=== PATIENT | male | born 1945 | race Caucasian/White ===

== ENCOUNTER 2017-06-16 15:37 | Outpatient (CLI) | payer MEDICARE, OTHER ==
--- NOTE | 2017-06-17 13:54 | Ultrasound Report ---
BILATERAL LOWER EXTREMITY ARTERIAL DUPLEX: 06/16/2017 CLINICAL INDICATION: Numbness, paresthesias. TECHNIQUE: Real-time sonographic vascular imaging was performed by the beauty therapist through the lower extremities utilizing both color-flow and Doppler spectral analysis. Multiple sales representative gas service static images were saved for review. RIGHT SIDE SITE PSV WAVEFORM STEN COMMUNITY BOARD MEMBER 89 triphasic -- PSFA 82 biphasic -- MSFA 70 triphasic -- DSFA 59 triphasic -- PFA 55 biphasic -- POP 45 triphasic -- ANIKA 48 biphasic -- ROLL FORMING SUPERVISOR 82 biphasic -- PER 52 biphasic -- DPA 13 biphasic -- LEFT SIDE SITE PSV WAVEFORM STEN COMMUNITY BOARD MEMBER 80 triphasic -- PSFA 97 triphasic -- MSFA 69 biphasic -- DSFA 60 triphasic -- PFA 58 triphasic -- POP 66 triphasic -- ANIKA 55 biphasic -- ROLL FORMING SUPERVISOR 74 biphasic -- PER 39 biphasic -- DPA 19 biphasic -- FINDINGS RIGHT LEG: Waveforms are predominantly triphasic. There is no evidence of a focal velocity increase to suggest a hemodynamically significant stenosis. LEFT LEG: Waveforms are predominantly triphasic. There is no evidence of a focal velocity increase to suggest a hemodynamically significant stenosis. IMPRESSION: NO EVIDENCE OF HEMODYNAMICALLY SIGNIFICANT ARTERIAL STENOSIS IN EITHER LEG. TD: 06/17/2017 09:39 JOHN
== END 2017-06-16 15:38 | disposition home or self-care (01) ==
LOC: DI 15:37
PROVIDERS: ATTEND Internal Medicine
DX: R20.2 Paresthesia of skin (principal)
CPT/HCPCS: 93925

== ENCOUNTER 2017-08-20 06:30 | Emergency (ER) | payer MEDICARE ==
[2017-08-20 06:40] VITALS: BP 224/118
--- NOTE | 2017-08-20 06:44 | ED Physician Documentation ---
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, but similar episodes x few days) Timing - onset during: Rest Timing - duration: Minutes Timing - details: Abrupt onset, Still present, Intermittant Pain level now: 8 Quality: Pain Location: Substernal, Left chest, Right chest Radiation: Left upper extremity, Right upper extremity Improved by: Nothing Worsened by: Other (no exacerbating factors) Associated symptoms: No: Shortness of air, Diaphoresis, Nausea, Vomiting, Feeling faint / dizzy, General Weakness, Palpitations, Cough Similar symptoms before: Has not had sx before (episodic x few days, but has not had symptoms previously) Recently seen: Not recently seen - Additional information Additional information: drove self to ED Review of Systems Constitutional: reports: Reviewed and negative Eyes: reports: Reviewed and negative Ears: reports: Reviewed and negative Nose: reports: Reviewed and negative Throat: reports: Reviewed and negative Cardiac: reports: Chest pain / pressure. denies: Palpitations, Pedal edema, Calf pain Respiratory: reports: Reviewed and negative GI: reports: Reviewed and negative : reports: Reviewed and negative Skin: reports: Reviewed and negative Musculoskeletal: reports: Reviewed and negative Neurologic: reports: Reviewed and negative PD PAST MEDICAL HISTORY - Past Medical History Past Medical History: Yes : Benign prostate hypertrophy - Past Surgical History Past Surgical History: No - Present Medications Home Medications: Ambulatory Orders Medication Instructions Recorded Confirmed Tamsulosin HCl [Flomax] 0.4 mg PO 08/20/17 - Allergies Allergies/Adverse Reactions: Allergies Allergy/AdvReac Type Severity Reaction Status Date / Time No Known Drug Allergies Allergy Verified 08/20/17 06:40 - Living Situation Living Situation: reports: With family Living Arrangement: reports: At home - Social History Does the pt smoke?: Yes PD ED PE NORMAL - Vitals Vital signs reviewed: Yes - General General: Alert and oriented X 3, No acute distress, Well developed/nourished - HEENT HEENT: Moist mucous membranes - Neck Neck: Supple, no meningeal sign - Cardiac Cardiac: RRR, No murmur - Respiratory Respiratory: No respiratory distress, Clear bilaterally - Abdomen Abdomen: Soft, Non tender - Derm Derm: Normal color, Warm and dry - Extremities Extremities: No edema - Neuro Neuro: Alert and oriented X 3 Results - Vitals Vitals: Vital Signs - 24 hr 08/20/17 06:34 Temperature 36.1 C L Heart Rate 65 Respiratory 12 Rate Blood Pressure 224/118 H O2 Saturation 100 Oxygen O2 Source Room air - EKG (time done) No standard instances Rate: Rate (enter#) (55) Rhythm: NSR [place]: Normal Intervals: Normal [place] QRS: Normal Ischemia: ST elevation c/w ischemia (II, III, aVF) - Labs Labs: Laboratory Tests 08/20/17 08/20/17 08/20/17 06:40 06:40 06:40 WBC 9.1 RBC 4.62 L Hgb 14.8 Hct 44.0 MCV 95.2 H MCH 32.0 H MCHC 33.6 RDW 14.3 Plt Count 342 MPV 7.8 Neut # (Auto) 5.0 Lymph # (Auto) 3.0 Antelope # (Auto) 0.9 Eos # (Auto) 0.1 Baso # (Auto) 0.1 Absolute Nucleated RBC 0.01 Nucleated RBC % 0.1 PT 12.3 INR 1.1 APTT 25.2 Sodium 135 Potassium 3.9 Chloride 101 Carbon Dioxide 22 Anion Gap 12.0 BUN 26 H Creatinine 1.1 Estimated GFR (MDRD) 66 L Glucose 121 H Calcium 9.4 Total Creatine Kinase 251 CK-MB (CK-2) Troponin I 08/20/17 06:40 WBC RBC Hgb Hct MCV MCH MCHC RDW Plt Count MPV Neut # (Auto) Lymph # (Auto) Antelope # (Auto) Eos # (Auto) Baso # (Auto) Absolute Nucleated RBC Nucleated RBC % PT INR APTT Sodium Potassium Chloride Carbon Dioxide Anion Gap BUN Creatinine Estimated GFR (MDRD) Glucose Calcium Total Creatine Kinase CK-MB (CK-2) 30.5 H Troponin I 1.33 H* PD MEDICAL DECISION MAKING - ED course Complexity details: reviewed results, re-evaluated patient, considered differential, d/w patient, d/w family ED course: presents to ED by private vehicle c/o chest pain. denies cardiac history. EKG reveals STEMI (inferior leads). Given heparin bolus and heparin drip initiated, given aspirin, SLNTG, PO metoprolol, plavix. blood drawn and sent. patient was already en route to [facility] via ambulance before blood tests resulted. D/W Dr. Fatima (ED physician at [facility]), accepts transfer. - Sepsis Event Vital Signs: Vital Signs - 24 hr 08/20/17 06:34 Temperature 36.1 C L Heart Rate 65 Respiratory 12 Rate Blood Pressure 224/118 H O2 Saturation 100 Oxygen O2 Source Room air Departure - Departure Disposition: 02 Transfer Acute Care Hosp Clinical Impression: Myocardial infarction Qualifiers: Myocardial infarction type: ST elevation myocardial infarction Involved coronary artery: right coronary artery Qualified Code(s): I21.11 - ST elevation (STEMI) myocardial infarction involving right coronary artery Condition: Stable Discharge Date/Time: 08/20/17 06:59
[2017-08-20] MEDS ORDERED: HEPARIN 5,000 UNIT/ML VIAL ONE ×2 (06:50→07:01)
[2017-08-20] MEDS ORDERED: ASPIRIN CHEW 81 MG TABLET ONE (06:50)
[2017-08-20] MEDS ORDERED: METOPROLOL TARTRATE 50 MG TABLET ONE (06:50)
[2017-08-20] MEDS ORDERED: CLOPIDOGREL 300 MG TABLET PO ONE (06:50)
[2017-08-20] MEDS ORDERED: NITROGLYCERIN SL 0.4 MG TABLET SL ONE (06:50)
[2017-08-20] MEDS ORDERED: HEPARIN 25000UNITS/500ML (D5W) 25,000 UNIT/500 ML BAG IV ONE ×2 (06:51→07:01)
[2017-08-20 07:19] LABS: BASOPHILS # (AUTO) 0.1 10^3/uL (0.0-0.1); EOSINOPHILS # (AUTO) 0.1 10^3/uL (0.0-0.7); EOSINOPHILS % (AUTO) 1.5 %; HGB - HEMOGLOBIN 14.8 g/dL (14.0-18.0); LYMPHOCYTES % (AUTO) 32.8 %; MEAN CORPUSCULAR HGB CONC 33.6 g/dL (32.0-36.0); MEAN CORPUSCULAR VOLUME 95.2 fL (80.0-94.0); MEAN PLATELET VOLUME 7.8 fL (7.4-11.4); MONOCYTES # (AUTO) 0.9 10^3/uL (0.0-1.0); NEUTROPHILS % (AUTO) 54.7 %; PLT - PLATELET COUNT 342 10^3/uL (130-450); RED BLOOD COUNT 4.62 10^6/uL (4.70-6.10); RED CELL DISTRIBUTION WIDTH 14.3 % (12.0-15.0); TROPONIN I 1.33 ng/mL (<0.49); WHITE BLOOD COUNT 9.1 x10^3/uL (4.8-10.8)
[2017-08-20 07:27] LABS: INR 1.1 (0.8-1.2); PT - PROTHROMBIN TIME 12.3 secs (9.9-12.6)
[2017-08-20 07:36] LABS: CALCIUM 9.4 mg/dL (8.5-10.3); CREATININE 1.1 mg/dL (0.6-1.2)
[2017-08-20 07:37] LABS: CREATINE KINASE MB 30.5 ng/mL (0.6-6.3)
== END 2017-08-20 06:59 | disposition short-term general hospital (02) ==
LOC: ED 06:30
DX: I21.11 ST elevation (STEMI) myocardial infarction involving right coronary artery (principal)
CPT/HCPCS: 36415; 80048; 82550; 82553; 84484; 85025; 85610; 85730; 93005; 96365; 99284; 99285; A9270

== ENCOUNTER 2017-08-20 07:00 | Outpatient (CLI) | payer MEDICARE | END 2017-08-20 07:01 | disposition short-term general hospital (02) | LOC: EMS 07:00 | PROVIDERS: ATTEND Surgery | DX: I21.3 ST elevation (STEMI) myocardial infarction of unspecified site (principal) | CPT/HCPCS: A0425; A0427 ==

== ENCOUNTER 2017-09-17 08:00 | Outpatient (CLI) | payer MEDICARE ==
[2017-09-17 17:54] LABS: CHOL/HDL RATIO 2.7 (<5.0); CHOLESTEROL 117 mg/dL; HDL CHOLESTEROL 43 mg/dL; LDL CHOLESTEROL,CALCULATED 64 mg/dL; LDL/HDL RATIO 1.5 (<3.6); VLDL CHOLESTEROL 10 mg/dL
== END 2017-09-17 08:01 | disposition home or self-care (01) ==
LOC: LAB.F 08:00
PROVIDERS: ATTEND Physician Assistant
DX: I25.10 Atherosclerotic heart disease of native coronary artery without angina pectoris (principal)
CPT/HCPCS: 36415; 80061; 83721

== ENCOUNTER 2018-06-08 09:56 | Outpatient (CLI) | payer MEDICARE ==
[2018-06-08 17:45] LABS: BASOPHILS % (AUTO) 0.3 %; EOSINOPHILS # (AUTO) 0.1 10^3/uL (0.0-0.7); EOSINOPHILS % (AUTO) 1.4 %; HGB - HEMOGLOBIN 13.4 g/dL (14.0-18.0); LYMPHOCYTES # (AUTO) 1.7 10^3/uL (1.5-3.5); LYMPHOCYTES % (AUTO) 28.2 %; MEAN CORPUSCULAR HEMOGLOBIN 31.2 pg (27.0-31.0); MEAN CORPUSCULAR HGB CONC 32.9 g/dL (32.0-36.0); MEAN PLATELET VOLUME 7.4 fL (7.4-11.4); MONOCYTES # (AUTO) 0.5 10^3/uL (0.0-1.0); MONOCYTES % (AUTO) 7.9 %; NEUTROPHILS # (AUTO) 3.8 10^3/uL (1.5-6.6); NEUTROPHILS % (AUTO) 62.2 %; PLT - PLATELET COUNT 322 10^3/uL (130-450); RED BLOOD COUNT 4.29 10^6/uL (4.70-6.10); RED CELL DISTRIBUTION WIDTH 14.6 % (12.0-15.0); WHITE BLOOD COUNT 6.1 x10^3/uL (4.8-10.8)
[2018-06-08 18:04] LABS: ALBUMIN 4.3 g/dL (3.2-5.5); ALBUMIN/GLOBULIN RATIO 1.7 (1.0-2.2); ALKALINE PHOSPHATASE 60 IU/L (42-121); ALT ALANINE AMINOTRANSFERASE 36 IU/L (10-60); AST ASPARTATE AMINOTRANSFERASE 25 IU/L (10-42); BILIRUBIN,TOTAL 0.7 mg/dL (0.2-1.0); BUN - BLOOD UREA NITROGEN 16 mg/dL (6-20); CALCIUM 9.2 mg/dL (8.5-10.3); CARBON DIOXIDE - CO2 27 mmol/L (21-32); CHLORIDE 105 mmol/L (101-111); CHOL/HDL RATIO 3.3 (<5.0); CHOLESTEROL 141 mg/dL; CK- CREATINE KINASE 69 IU/L (22-269); GFR - MDRD 74 (>89); GLUCOSE 102 mg/dL (70-100); HDL CHOLESTEROL 43 mg/dL; LDL CHOLESTEROL,CALCULATED 84 mg/dL; SODIUM 139 mmol/L (135-145); TOTAL PROTEIN 6.9 g/dL (6.7-8.2); VLDL CHOLESTEROL 14 mg/dL
[2018-06-08 18:11] LABS: THYROID STIMULATING HORMONE 1.45 uIU/mL (0.34-5.60)
[2018-06-09 11:52] LABS: HB2 TOTAL 14.2 g/dL; HEMOGLOBIN A1C 0.59 g/dL
== END 2018-06-08 09:57 | disposition home or self-care (01) ==
LOC: LAB.F 09:56
PROVIDERS: ATTEND Internal Medicine
DX: R97.20 Elevated prostate specific antigen [PSA] (principal); N40.0 Benign prostatic hyperplasia without lower urinary tract symptoms; Z12.11 Encounter for screening for malignant neoplasm of colon; Z12.12 Encounter for screening for malignant neoplasm of rectum; Z79.899 Other long term (current) drug therapy; R20.0 Anesthesia of skin; E78.5 Hyperlipidemia, unspecified; I25.10 Atherosclerotic heart disease of native coronary artery without angina pectoris
CPT/HCPCS: 36415; 80053; 80061; 82550; 82607; 83036; 83721; 84153; 84443; 85025

== ENCOUNTER 2018-06-14 09:00 | Outpatient (CLI) | payer MEDICARE | END 2018-06-14 23:59 | disposition home or self-care (01) | LOC: LAB.R 09:00 | PROVIDERS: ATTEND Internal Medicine | DX: Z12.11 Encounter for screening for malignant neoplasm of colon (principal); Z12.12 Encounter for screening for malignant neoplasm of rectum | CPT/HCPCS: 82274 ==

== ENCOUNTER 2019-02-03 20:18 | Emergency (ER) | payer MEDICARE ==
[2019-02-03] MEDS ORDERED: ASPIRIN CHEW 81 MG TABLET PO STA (20:59)
--- NOTE | 2019-02-03 21:05 | ED Physician Documentation ---
PD HPI CHEST PAIN - Stated complaint Stated Complaint: CP - Chief complaint Chief Complaint: Cardiac - History obtained from History obtained from: Patient - History of Present Illness Timing - onset: Other (He had a STEMI about 18 months ago with a single stent in place, he did after that he says had a stress test which was negative. He has had 2 episodes of chest pain today, one at noon at rest that lasted for about an hour, another about 730 that was brief. The first 1 was at rest, the second 1 was with light activity. The pain on both episodes was nonradiating, but otherwise consistent with prior angina. There was no shortness of breath, diaphoresis, nausea, or dizziness. He is pain-free now.) Review of Systems Ten Systems: 10 systems reviewed and negative Constitutional: denies: Fever, Chills Throat: denies: Dental pain / toothache, Sore throat Respiratory: denies: Dyspnea, Cough PD PAST MEDICAL HISTORY - Past Medical History Past Medical History: Yes Cardiovascular: Hypertension, High cholesterol, Coronary artery disease : Benign prostate hypertrophy - Past Surgical History Past Surgical History: No - Present Medications Home Medications: Ambulatory Orders Medication Instructions Recorded Confirmed Tamsulosin HCl [Flomax] 0.4 mg PO 08/20/17 - Allergies Allergies/Adverse Reactions: Allergies Allergy/AdvReac Type Severity Reaction Status Date / Time No Known Drug Allergies Allergy Verified 02/03/19 20:21 - Social History Does the pt smoke?: Yes Smoking Status: Current every day smoker Does the pt drink ETOH?: Yes - Family History Family history: reports: Non contributory - Immunizations Immunizations are current?: No - POLST Patient has POLST: No PD ED PE NORMAL - Vitals Vital signs reviewed: Yes - General General: Alert and oriented X 3, No acute distress - HEENT HEENT: PERRL, EOMI - Neck Neck: Supple, no meningeal sign, No bony TTP - Cardiac Cardiac: RRR, No murmur - Respiratory Respiratory: No respiratory distress, Clear bilaterally - Abdomen Abdomen: Normal bowel sounds, Soft, Non tender - Back Back: No CVA TTP, No spinal TTP - Derm Derm: Normal color, Warm and dry - Extremities Extremities: No edema, No calf tenderness / cord - Neuro Neuro: Alert and oriented X 3, Normal speech Results - Vitals Vitals: Vital Signs - 24 hr 02/03/19 02/03/1902/03/19 20:21 21:20 21:30 Temperature 36.6 C Heart Rate 60 75 83 Respiratory 14 15 15 Rate Blood Pressure 149/79 H 142/81 H 155/95 H O2 Saturation 99 97 99 Oxygen O2 Source Room air - EKG (time done) 2026 Rate: Rate (enter#) (58) Rhythm: NSR [place]: Normal Intervals: Normal [place] QRS: Normal Ischemia: Q waves (Inferior and lateral). No: ST elevation c/w ischemia, ST depression Computer interpretation: Agree with computer - Labs Labs: Laboratory Tests 02/03/19 02/03/19 02/03/19 21:12 21:12 21:12 WBC 6.5 RBC 3.92 L Hgb 12.3 L Hct 38.0 L MCV 96.9 H MCH 31.4 H MCHC 32.4 RDW 13.1 Plt Count 287 MPV 9.0 Neut # (Auto) 3.2 Lymph # (Auto) 2.4 Burke # (Auto) 0.7 Eos # (Auto) 0.1 Baso # (Auto) 0.1 Absolute Nucleated RBC 0.00 Nucleated RBC % 0.0 Sodium 141 Potassium 4.6 Chloride 105 Carbon Dioxide 28 Anion Gap 8.0 BUN 16 Creatinine 1.1 Estimated GFR (MDRD) 66 L Glucose 114 H Calcium 9.0 Total Bilirubin 0.5 AST 21 ALT 28 Alkaline Phosphatase 49 Troponin I High Sens 2.6 Total Protein 6.7 Albumin 4.2 Globulin 2.5 Albumin/Globulin Ratio 1.7 Lipase 30 PD MEDICAL DECISION MAKING - ED course ED course: 73-year-old gentleman with history of coronary disease presents with 2 episodes of chest pain today that are atypical. He is pain-free here. His biomarkers and EKG are negative. Discussed the case by phone his primary care physician, Dr. Molina will try to get him set up for a stress test on Wednesday and he will return for recurrent pain. Departure - Departure Disposition: 01 Home, Self Care Clinical Impression: Atypical chest pain Condition: Good Record reviewed to determine appropriate education?: Yes Instructions: ED Chest Pain Atypical Unkn Cause Comments: Dr. Molina should be calling you Wednesday morning to arrange for a stress test. Return for if chest pain recurs. Continue current medications but stop your metoprolol after tomorrow pending the stress test.
[2019-02-03 21:18] LABS: BASOPHILS # (AUTO) 0.1 10^3/uL (0.0-0.1); BASOPHILS % (AUTO) 0.8 %; EOSINOPHILS # (AUTO) 0.1 10^3/uL (0.0-0.7); EOSINOPHILS % (AUTO) 1.7 %; HGB - HEMOGLOBIN 12.3 g/dL (14.0-18.0); LYMPHOCYTES # (AUTO) 2.4 10^3/uL (1.5-3.5); LYMPHOCYTES % (AUTO) 37.7 %; MEAN CORPUSCULAR HEMOGLOBIN 31.4 pg (27.0-31.0); MEAN CORPUSCULAR HGB CONC 32.4 g/dL (32.0-36.0); MEAN CORPUSCULAR VOLUME 96.9 fL (80.0-94.0); MONOCYTES # (AUTO) 0.7 10^3/uL (0.0-1.0); MONOCYTES % (AUTO) 10.5 %; NEUTROPHILS # (AUTO) 3.2 10^3/uL (1.5-6.6); NEUTROPHILS % (AUTO) 49.1 %; PLT - PLATELET COUNT 287 10^3/uL (130-450); RED BLOOD COUNT 3.92 10^6/uL (4.70-6.10); RED CELL DISTRIBUTION WIDTH 13.1 % (12.0-15.0); WHITE BLOOD COUNT 6.5 x10^3/uL (4.8-10.8)
[2019-02-03 21:33] LABS: ALBUMIN 4.2 g/dL (3.2-5.5); ALBUMIN/GLOBULIN RATIO 1.7 (1.0-2.2); BILIRUBIN,TOTAL 0.5 mg/dL (0.2-1.0); CREATININE 1.1 mg/dL (0.6-1.2); TOTAL PROTEIN 6.7 g/dL (6.7-8.2)
--- NOTE | 2019-02-03 21:38 | XRAY Report ---
Reason: chest pain Procedure Date: 02/03/2019 Accession Number: [id number] / [id number] Procedure: XR - Chest 1 View X-Ray CPT Code: 59475 Final Report FULL RESULT: EXAM: CHEST RADIOGRAPHY EXAM DATE: 02/03/2019 09:11 PM. CLINICAL HISTORY: Chest pain. COMPARISON: None. TECHNIQUE: 1 view. FINDINGS: Lungs/Pleura: Left basilar atelectasis. No focal consolidation, pleural effusion, or pneumothorax. Mediastinum: Within exam limitations, the cardiomediastinal contour is normal. Other: Lower thoracic levoscoliosis. Old healed right midshaft clavicular fracture. IMPRESSION: Left basilar atelectasis. RADIA
[2019-02-03 21:49] VITALS: BP 155/95
== END 2019-02-03 22:15 | disposition home or self-care (01) ==
LOC: ED 20:18
DX: R07.89 Other chest pain (principal); I25.10 Atherosclerotic heart disease of native coronary artery without angina pectoris; I25.2 Old myocardial infarction; Z95.5 Presence of coronary angioplasty implant and graft; I10 Essential (primary) hypertension; F17.200 Nicotine dependence, unspecified, uncomplicated
CPT/HCPCS: 36415; 71045; 80053; 83690; 84484; 85025; 93005; 99284; 99285; A9270

== ENCOUNTER 2019-02-07 10:56 | Outpatient (CLI) | payer MEDICARE ==
--- NOTE | 2019-02-07 15:22 | Nuclear Medicine Report ---
Reason: CAD Procedure Date: 02/07/2019 Accession Number: [id number] / [id number] Procedure: NM - Myocardial Perfusion STR/RST CPT Code: Final Report FULL RESULT: EXAM: SINGLE-ISOTOPE EXERCISE STRESS TEST. SINGLE-ISOTOPE AND ONE-DAY REST/STRESS MYOCARDIAL PERFUSION SCANS WITH TOMOGRAPHIC IMAGING, QUANTITATIVE ANALYSIS, WALL MOTION ANALYSIS AND CALCULATION OF EJECTION FRACTION. EXAM DATE: 02/07/2019 02:56 PM. CLINICAL HISTORY: CAD. Chest pain. COMPARISON: None. TECHNIQUE: A rest myocardial perfusion scan was done with tomography after the intravenous administration of 10.6 mCi Tc-99m sestamibi. After an appropriate delay, a treadmill exercise stress was performed according to department protocol. The patient exercised for 6 minutes and 22 seconds. The maximum heart rate was 150 bpm, which was more than 85% of the maximum predicted heart rate of 149 bpm. At approximately peak heart rate, 43.2 mCi of Tc-99m sestamibi was injected for stress myocardial perfusion scan. Motion correction was applied when appropriate. Gated tomographic images were obtained for wall motion analysis and computation of left ventricular ejection fraction. FINDINGS: Perfusion images: Left ventricular chamber size appears normal at rest and unchanged at stress. No convincing fixed perfusion deficits. There is inferior wall diaphragmatic attenuation artifact which changes slightly in configuration between rest and stress images. No convincing reversible perfusion deficits. SSS 7, SRS 2, SDS 5. Gated images: No convincing focal wall motion abnormality. Calculated left ventricular EDV 80 mL, ESV 20 mL. The left ventricular ejection fraction is estimated at 75% (normal > 50%). IMPRESSION: 1. No convincing reversible perfusion deficits to indicate stress-induced ischemia. 2. No convincing fixed perfusion deficits. 3. Left ventricular ejection fraction of 75% (normal > 50%). Please correlate findings with stress ECG tracings and procedure notes. RADIA The call report notification system was initiated by Dr. Boubacar Miller at 03:19 PM on 02/07/2019. The above call report findings were discussed with Dr. Villalobos by Dr. Boubacar Miller at 03:21 PM on 02/07/2019.
--- NOTE | 2019-02-07 18:12 | CARDIAC PROCEDURE NOTE ---
DATE OF SERVICE: 02/07/2019 Physician: Aimee Villalobos MD, [facility] INDICATION 1. Chest pain. 2. Coronary artery disease. CARDIAC RISK FACTORS: Male gender, history of prior [place] with known CAD, stent in the PDA distribution. DESCRIPTION OF PROCEDURE: After signing informed consent, the patient underwent a Bal-protocol treadmill stress test with nuclear myocardial perfusion imaging. RESTING HEART RATE: 53. PEAK HEART RATE 150 (100% predicted maximum heart rate for age). RESTING BLOOD PRESSURE: 161/83. PEAK BLOOD PRESSURE: 211/86. Patient exercised for 6 minutes and 22 seconds on a Bal-protocol treadmill stress test. Peak heart rate achieved was 150 (100% PMHR) and 7.6 METS. Excessive blood pressure response, the patient did not take his morning Metoprolol. Patient had only mild shortness of breath and described his perceived exertion at 15/20 on the [place] scale at peak. He had no chest pain throughout exercise or in recovery. RESTING EKG: Sinus bradycardia, rate 53, borderline early R/S transition. EKG AT PEAK: Resolution of early R/S transition, nonspecific upsloping ST depressions are seen in leads V4 through V6. SUMMARY 1. Abnormal resting EKG. 2. Good exercise tolerance. 3. No chest pain occurred with exertion to 100% predicted maximum heart rate for age. 4. Nonspecific EKG changes occur with exercise. 5. Nuclear images reported separately. Note: Since Dr. Molina was not available on this day, I called the patient with his nuclear scan results. cc: Lianet Molina MD TD: 02/07/2019 17:42 [facility]
== END 2019-02-07 10:57 | disposition home or self-care (01) ==
LOC: DI 10:56
PROVIDERS: ATTEND Internal Medicine
DX: R07.9 Chest pain, unspecified (principal); R94.31 Abnormal electrocardiogram [ECG] [EKG]; I25.10 Atherosclerotic heart disease of native coronary artery without angina pectoris; I25.2 Old myocardial infarction; Z95.5 Presence of coronary angioplasty implant and graft
CPT/HCPCS: 78452; 93017; A9500

== ENCOUNTER 2019-10-26 13:07 | Day surgery (SDC) | payer MEDICARE ==
--- NOTE | 2019-10-26 13:28 | ED Physician Documentation ---
History of Present Illness - Stated complaint Stated Complaint: MALE - Chief complaint Chief Complaint: Abd Pain - Additonal information Additional information: 74-year-old male presents to the emergency department with approximately 18 ho urs of acute right lower quadrant abdominal pain. Patient denies any fevers or vomiting. He does endorse some nausea. He has no dysuria urgency or frequency. He has no pertinent abdominal surgical history. He retains his gallbladder and appendix. Past medical history includes hypertension coronary artery disease and previous [place] in 2017. He did require 1 stent placed. Meds Plavix, aspirin, losartan, metoprolol, statin. Review of Systems Constitutional: reports: Reviewed and negative Nose: reports: Reviewed and negative Throat: reports: Reviewed and negative Cardiac: reports: Reviewed and negative Respiratory: reports: Reviewed and negative GI: reports: Abdominal Pain, Nausea. denies: Vomiting, Constipation, Diarrhea, Hematemesis, Bloody / black stool : denies: Dysuria, Hesitancy Skin: denies: Rash, Lesions Musculoskeletal: reports: Reviewed and negative PD PAST MEDICAL HISTORY - Past Medical History Cardiovascular: Hypertension, High cholesterol, Coronary artery disease : Benign prostate hypertrophy - Past Surgical History Past Surgical History: No - Present Medications Home Medications: Ambulatory Orders Medication Instructions Recorded Confirmed Tamsulosin HCl [Flomax] 0.4 mg PO 08/20/17 - Allergies Allergies/Adverse Reactions: Allergies Allergy/AdvReac Type Severity Reaction Status Date / Time No Known Drug Allergies Allergy Verified 10/26/19 13:19 - Social History Does the pt smoke?: Yes Smoking Status: Current every day smoker Does the pt drink ETOH?: Yes Does the pt have substance abuse?: No - Immunizations Immunizations are current?: No - POLST Patient has POLST: No PD ED PE NORMAL - General General: Alert and oriented X 3, No acute distress, Well developed/nourished - HEENT HEENT: Atraumatic, Moist mucous membranes - Neck Neck: Supple, no meningeal sign, No adenopathy, Thyroid normal - Cardiac Cardiac: RRR, No murmur - Respiratory Respiratory: No respiratory distress, Clear bilaterally - Abdomen Abdomen: Normal bowel sounds, Soft (+ mcburneys; + psoas; rebound tenderness RLQ; no guarding), Non distended - Back Back: No CVA TTP - Derm Derm: Normal color, Warm and dry, No rash - Extremities Extremities: No deformity - Neuro Neuro: Alert and oriented X 3, appellate law clerk 2-12 intact Eye Opening: Spontaneous Motor: Obeys Commands Verbal: Oriented GCS Score: 15 Results - Vitals Vitals: Vital Signs - 24 hr 10/26/19 13:11 Temperature 36.8 C Heart Rate 71 Respiratory 16 Rate Blood Pressure 152/84 H O2 Saturation 98 Oxygen O2 Source Room air - EKG (time done) 1345 Rate: Rate (enter#) (67) Rhythm: NSR [place]: LAD Intervals: Normal [place] QRS: Normal Ischemia: Normal ST segments Compare to prior EKG: Old EKG unavailable Computer interpretation: Agree with computer - Labs Labs: Laboratory Tests 10/26/19 10/26/19 10/26/19 13:40 13:40 13:40 WBC 14.1 H RBC 4.27 L Hgb 13.5 L Hct 40.8 L MCV 95.6 H MCH 31.6 H MCHC 33.1 RDW 13.8 Plt Count 288 MPV 8.9 Neut # (Auto) 11.4 H Lymph # (Auto) 1.4 L Ble[place] # (Auto) 1.2 H Eos # (Auto) 0.0 Baso # (Auto) 0.0 Absolute Nucleated RBC 0.00 Nucleated RBC % 0.0 Sodium 137 Potassium 4.0 Chloride 103 Carbon Dioxide 27 Anion Gap 7.0 BUN 14 Creatinine 1.0 Estimated GFR (MDRD) 73 L Glucose 115 H Calcium 9.2 Total Bilirubin 1.3 H AST 17 ALT 25 Alkaline Phosphatase 57 Total Protein 7.0 Albumin 4.3 Globulin 2.7 Albumin/Globulin Ratio 1.6 Lipase 22 Urine Color YELLOW Urine Clarity CLEAR Urine pH 6.0 Ur Specific [place] 1.020 Urine Protein NEGATIVE Urine Glucose (UA) NEGATIVE Urine Ketones NEGATIVE Urine Occult Blood TRACE-INTA Urine Nitrite NEGATIVE Urine Bilirubin NEGATIVE Urine Urobilinogen 0.2 (NORMAL) Ur Leukocyte Esterase NEGATIVE Ur Microscopic Review NOT INDICATED Urine Culture Comments NOT INDICATED - Rads (name of study) CT abd Radiology: Final report received (Acute appendicitis with out abscess or perforation) PD MEDICAL DECISION MAKING - ED course Complexity details: reviewed results, re-evaluated patient, considered differential, d/w patient, d/w family ED course: 74 year old male presents to the ED for evaluation of acute onset RLQ abdominal pain with nausea, but no vomiting. CT scan reveals acute appendicitis without abscess or perforation. He does have mild leukocytosis on white count. I spoken with Dr. Girish Knapp surgeon on-call and he will be taking the patient to surgery this afternoon. Zosyn has been ordered preemptively. At this time patient appears well and is hemodynamically stable. Dr. Kelly at bedside Departure - Departure Disposition: ED Transfer to [facility] Clinical Impression: Acute appendicitis Qualifiers: Acute appendicitis type: with localized peritonitis Appendicitis gangrene presence: without gangrene Appendicitis perforation presence: without perforation Appendicitis abscess presence: without abscess Qualified Code(s): K35.30 - Acute appendicitis with localized peritonitis, without perforation or gangrene
[2019-10-26] MEDS ORDERED: SODIUM CHLORIDE 0.9% 1,000 ML IV STA (13:31)
[2019-10-26] MEDS ORDERED: IOVERSOL 320 100 ML VIAL IVP ONE ×2 (13:37→15:18)
[2019-10-26 13:54] LABS: BASOPHILS % (AUTO) 0.3 %; BILIRUBIN,URINE NEGATIVE (NEGATIVE); EOSINOPHILS % (AUTO) 0.1 %; GLUCOSE, URINE (UA) NEGATIVE (NEGATIVE); HGB - HEMOGLOBIN 13.5 g/dL (14.0-18.0); KETONES,URINE (UA) NEGATIVE (NEGATIVE); LEUKOCYTE ESTERASE, URINE NEGATIVE (NEGATIVE); LYMPHOCYTES # (AUTO) 1.4 10^3/uL (1.5-3.5); LYMPHOCYTES % (AUTO) 10.1 %; MEAN CORPUSCULAR HEMOGLOBIN 31.6 pg (27.0-31.0); MEAN CORPUSCULAR HGB CONC 33.1 g/dL (32.0-36.0); MEAN CORPUSCULAR VOLUME 95.6 fL (80.0-94.0); MEAN PLATELET VOLUME 8.9 fL (7.4-11.4); MONOCYTES # (AUTO) 1.2 10^3/uL (0.0-1.0); MONOCYTES % (AUTO) 8.3 %; NEUTROPHILS # (AUTO) 11.4 10^3/uL (1.5-6.6); NEUTROPHILS % (AUTO) 80.7 %; NITRITE,URINE NEGATIVE (NEGATIVE); OCCULT BLOOD,URINE TRACE-INTA (NEGATIVE); PLT - PLATELET COUNT 288 10^3/uL (130-450); PROTEIN,URINE NEGATIVE (NEGATIVE); RED BLOOD COUNT 4.27 10^6/uL (4.70-6.10); RED CELL DISTRIBUTION WIDTH 13.8 % (12.0-15.0); UROBILINOGEN,URINE 0.2 (NORMAL) E.U./dL (NORMAL); WHITE BLOOD COUNT 14.1 x10^3/uL (4.8-10.8)
[2019-10-26 13:56] LABS: CLARITY,URINE CLEAR (CLEAR)
[2019-10-26 14:04] LABS: ALBUMIN 4.3 g/dL (3.2-5.5); ALBUMIN/GLOBULIN RATIO 1.6 (1.0-2.2); BILIRUBIN,TOTAL 1.3 mg/dL (0.2-1.0); CALCIUM 9.2 mg/dL (8.5-10.3)
--- NOTE | 2019-10-26 14:50 | CT Report ---
PROCEDURE: Abdomen/Pelvis W INDICATIONS: RLQ Abdominal pain, appendicitis suspected CONTRAST: IV CONTRAST: Optiray 320 ml: 100 PO CONTRAST: *NO PO CONTRAST TECHNIQUE: After the administration of contrast, 5 mm thick sections acquired from the diaphragms to the sym physis. 5 mm thick coronal and sagittal reformats were acquired. For radiation dose reduction, the following was used: automated exposure control, adjustment of mA and/or kV according to patient size . COMPARISON: None. FINDINGS: Image quality: Excellent. ABDOMEN: Lung bases: Lung bases are clear. Heart size is normal. Solid organs: Liver and spleen are normal in size and enhancement. Gallbladder appears free of calc ified stone. Biliary system is non dilated. Pancreas enhances normally. No adrenal nodules. Kidne ys demonstrate normal size and enhancement, without hydronephrosis. Peritoneum and bowel: Bowel loops demonstrate normal wall thickness and caliber. No free fluid or a ir. Nodes and vessels: No retroperitoneal or mesenteric adenopathy by size criteria. Aorta and inferior vena cava are normal in size. Miscellaneous: No ventral hernias. Mild colonic obstipation. PELVIS: Genitourinary: Bladder wall thickness is normal. Miscellaneous: No inguinal hernias or adenopathy. At the right lower quadrant the appendix is visua lized, and is definitely inflamed. It is mildly dilated without calcified appendicoliths within, pratt malcolm. No periappendiceal abscess has developed. Incidental note is made of mild colonic obstipation. Bones: No suspicious bony lesions. No vertebral body compression fractures. IMPRESSION: Definite acute appendicitis without periappendiceal abscess or appendicolith. Findings i mmediately called to the emergency room and conveyed to the ordering health care provider. Incidental note is made of mild colonic obstipation. No additional acute disease is found. Reviewed by: Brennen Andre MD on 10/26/2019 2:49 PM PDT Approved by: Brennen Andre MD on 10/26/2019 2:49 PM PDT Station ID: [id number]
[2019-10-26] MEDS ORDERED: PIPERACILLIN/TAZOBACTAM 3.375 GM in SODIUM CHLORIDE 0.9% MINIBAG 100 ML IV STA (14:51)
[2019-10-26] MEDS ORDERED: BUPIVACAINE 0.5% PF 30 ML VIAL ONE (15:17)
[2019-10-26] MEDS ORDERED: LIDOCAINE 1%-EPI 1:100000 20 ML MDV ONE (15:17)
--- NOTE | 2019-10-26 15:51 | XRAY Report ---
PROCEDURE: Chest 1 View X-Ray INDICATIONS: chest pain TECHNIQUE: One view of the chest was acquired. COMPARISON: 02/03/2019 FINDINGS: Surgical changes and devices: None. Lungs and pleura: No pleural effusions or pneumothorax. Lungs are clear. Mediastinum: Mediastinal contours appear normal. Heart size is normal. Bones and chest wall: No suspicious bony lesions. Overlying soft tissues appear unremarkable. IMPRESSION: No acute cardiopulmonary process demonstrated radiographically. Reviewed by: Cheikh Ramírez MD on 10/26/2019 3:50 PM PDT Approved by: Cheikh Ramírez MD on 10/26/2019 3:50 PM PDT Station ID: [id number]
--- NOTE | 2019-10-26 16:19 | ANESTHESIA ---
Pre-Anesthesia VS, & Labs - Diagnosis appendicitis - Procedure laparoscopic appendectomy Vital Signs: Temp Pulse Resp BP Pulse Ox 36.8 C 66 16 138/77 H 98 10/26/19 13:11 10/26/19 15:39 10/26/19 15:39 10/26/19 15:39 10/26/19 15:39 Height 5 ft 9 in Weight (kg) 79.379 kg Body Mass Index 25.8 - NPO >8 hours - Lab Results Current Lab Results: Laboratory Tests 10/26/19 15:10: Blood Type A POSITIVE, Antibody Screen NEGATIVE 10/26/19 13:40: Sodium 137, Potassium 4.0, Chloride 103, Carbon Dioxide 27, Anion Gap 7.0, BUN 14, Creatinine 1.0, Estimated GFR (MDRD) 73 L, Glucose 115 H, Calcium 9.2, Total Bilirubin 1.3 H, AST 17, ALT 25, Alkaline Phosphatase 57, Total Protein 7.0, Albumin 4.3, Globulin 2.7, Albumin/Globulin Ratio 1.6, Lipase 22 10/26/19 13:40: WBC 14.1 H, RBC 4.27 L, Hgb 13.5 L, Hct 40.8 L, MCV 95.6 H, MCH 31.6 H, MCHC 33.1, RDW 13.8, Plt Count 288, MPV 8.9, Neut # (Auto) 11.4 H, Lymph # (Auto) 1.4 L, [place] # (Auto) 1.2 H, Eos # (Auto) 0.0, Baso # (Auto) 0.0, Absolute Nucleated RBC 0.00, Nucleated RBC % 0.0 Fish Bones: 10/26/19 13:40 10/26/19 13:40 Home Medications and Allergies Tamsulosin HCl [Flomax] 0.4 mg PO 08/20/17 Allergies/Adverse Reactions: Allergies Allergy/AdvReac Type Severity Reaction Status Date / Time No Known Drug Allergies Allergy Verified 10/26/19 13:19 Anes History & Medical History - Anesthetic History Anesthesia Complications: reports: No previous complications - Medical History Cardiovascular: reports: Hypertension, High cholesterol, Coronary artery disease Pulmonary: reports: None Gastrointestinal: reports: None Urinary: reports: Benign prostate hypertrophy Neuro: reports: None Musculoskeletal: reports: None Endocrine/Autoimmune: reports: None Blood Disorders: reports: None Skin: reports: None Smoking Status: Current every day smoker - Surgical History Cardiothoracic: Coronary stent Exam General: Alert Dental: WNL Mouth Opening: Greater than 4 Fingerbreadths Mallampati classification: I Thyromental Distance: greater than 6 cm Cardiovascular: Regular rate Plan Anesthesia Type: General Consent for Procedure(s) Verified and Reviewed: Yes Code Status: Attempt Resuscitation ASA classification: 3-Severe systemic disease Is this case an emergency?: Yes
[2019-10-26] MEDS ORDERED: METOPROLOL 5 MG/5 ML VIAL IVP ONE (16:32)
[2019-10-26] MEDS ORDERED: fentaNYL 100 MCG/2 ML VIAL IVP ONE (16:32)
[2019-10-26] MEDS ORDERED: MIDAZOLAM 2 MG/2 ML VIAL IVP ONE (16:32)
[2019-10-26] MEDS ORDERED: GLYCOPYRROLATE 1 MG/5 ML VIAL IVP ONE (16:32)
[2019-10-26] MEDS ORDERED: LIDOCAINE-MPF 2% 5 ML VIAL IM ONE (16:32)
[2019-10-26] MEDS ORDERED: ONDANSETRON 4 MG/2 ML VIAL IVP ONE (16:32)
[2019-10-26] MEDS ORDERED: ROCURONIUM 50 MG/5 ML VIAL IVP ONE (16:32)
[2019-10-26] MEDS ORDERED: ACETAMINOPHEN 1,000 MG/100 ML 100 ML IV ONE (16:32)
[2019-10-26] MEDS ORDERED: NEOSTIGMINE 1 MG/1 ML 10 ML MDV IVP ONE (16:32)
--- NOTE | 2019-10-26 16:43 | SURGERY HX AND PHYSICAL(T) ---
Surgical History & Physical - Chief Complaint/HPI Chief Complaint: Acute appendicits - PMH/PSH/Social Hx Does the pt have a hx of MRSA?: No Neurological History: None Eyes, Ears, Nose, Throat: Chronic vision loss Cardiovascular: Hypertension, High cholesterol, Coronary artery disease Respiratory: None Skin: None Endocrine/Autoimmune: None Gastrointestinal: None Urinary: Benign prostate hypertrophy Musculoskeletal: None Blood Disorders: None Psychiatric: None Cardiothoracic: Coronary stent Smoking Status: Current every day smoker Does the pt drink ETOH?: Yes Frequency: Occasional Does the pt have substance abuse?: No - Home Meds and Allergies Home Medications: Tamsulosin HCl [Flomax] 0.4 mg PO 08/20/17 Allergies/Adverse Reactions: Allergies Allergy/AdvReac Type Severity Reaction Status Date / Time No Known Drug Allergies Allergy Verified 10/26/19 13:19 - Review of Systems Constitutional: Fatigue, Weakness Cardiac: DC Respiratory: No: Shortness of breath, Cough, Sputum, Other Gastrointestinal: Abdominal pain. No: Nausea, Vomiting - Vital Signs Heart Rate: 66 Blood Pressure: 138/77 Temperature: 36.8 C Respiratory Rate: 16 O2 Saturation: 98 Weight (kg): 79.379 kg Height: 1.75 m - Physical Exam General Appearance: positive: No acute distress, Alert Eyes Bilatera: positive: Normal inspection, PERRL, EOMI ENT: positive: ENT inspection nml Neck: positive: Nml inspection Respiratory: positive: Chest non-tender, No respiratory distress, Breath sounds nml. negative: Wheezes, Rales, Rhonchi Cardiovascular: positive: Regular rate & rhythm Abdomen: positive: No organomegaly, Nml bowel sounds, No distention. negative: Tenderness, Guarding, Rebound Skin: positive: Color nml Extremities: positive: Non-tender Neurologic/Psychiatric: positive: Oriented x3, CN's nml (2-12) - Patient Review Patient Review: Problems were reviewed with the patient during this visit. Medications were reviewed with the patient during this visit. Allergies were reviewed this patient during this visit. Pertinent Tests Reviewed: All pertitent test for this patient were reviewed. - Assessment & Plan Assessment and Plan: 74 yo male presenting with acute appendicitis with multiple comorbid states including DC on antiplatelet agents. Leukocytosis to 12, CT consistent with appendicitis. Plan going forward is as follows: 1. Bowel rest, IV fluid resuscitation, IV antibiotics. 2. Preoperative chest x-ray, preoperative EKG, labs evaluated. 3. Planned diagnostic laparoscopy, laparoscopic appendectomy, other indicated procedures. Patient counseled of the risk associated with operative intervention including but not limited to conversion to open procedure, injury to local structures, and anesthesia risks of heart attack, stroke, . 4. Postoperative care under observation status with continued IV antibiotics.
[2019-10-26] MEDS ORDERED: METOCLOPRAMIDE 10 MG/2 ML VIAL IVP PRN (17:14)
[2019-10-26] MEDS ORDERED: MORPHINE 2 MG/ML CARPUJECT IVP PRN (17:14)
[2019-10-26] MEDS ORDERED: ONDANSETRON 4 MG/2 ML VIAL IVP PRN ×2 (17:14→18:30)
[2019-10-26] MEDS ORDERED: fentaNYL 100 MCG/2 ML VIAL IVP PRN (17:14)
[2019-10-26] MEDS ORDERED: ePHEDrine 50 MG/ML VIAL IVP PRN (17:14)
[2019-10-26] MEDS ORDERED: NALOXONE 0.4 MG/ML VIAL IVP PRN (17:14)
[2019-10-26] MEDS ORDERED: ATROPINE ABBOJECT 1 MG/10 ML SYRINGE IVP PRN (17:14)
[2019-10-26] MEDS ORDERED: HYDROmorphone 0.5 MG/0.5 ML SYRINGE IVP PRN (17:14)
[2019-10-26] MEDS ORDERED: BUPIVACAINE 0.5% PF 30 ML VIAL SUBQ ONE (17:15)
[2019-10-26] MEDS ORDERED: LIDOCAINE 1%-EPI 1:100000 30 ML MDV SUBQ ONE (17:15)
[2019-10-26] MEDS ORDERED: LACTATED RINGERS 1,000 ML IV SCH (18:00)
[2019-10-26] MEDS ORDERED: oxyCODONE 5 MG TABLET PO PRN (18:30)
[2019-10-26] MEDS ORDERED: SODIUM CHLORIDE FLUSH 0.9% 10 ML SYRINGE IVP PRN (18:30)
--- NOTE | 2019-10-26 18:37 | OPERATIVE REPORT ---
Operative Report - General Procedure Date: 10/27/19 Planned Procedure: 1. Diagnostic laparoscopy 2. Laparoscopic appendectomy 3. Extensive lysis of adhesions 4. Abdominal washout 5. Open umbilical hernia repair 6. Tap block per anesthesia Pre-Op Diagnosis: Appendicitis, abdominal pain, history of IN on dual platelet therapy Procedure Performed: 1. Diagnostic laparoscopy 2. Laparoscopic appendectomy 3. Extensive lysis of adhesions 4. Abdominal washout 5. Open umbilical hernia repair 6. Tap block per anesthesia Post Op Diagnosis: Appendicitis, abdominal pain, history of IN on dual platelet therapy - Procedure Note Primary Surgeon: Bo Secondary Surgeon: Nette Anesthesia Provider: Azul Dumont Anesthesia Technique: General ET tube, Local Pathology: Appendix Estimated Blood Loss (mL): 25 Indications: 74-year-old male with history of hypertension, IN on dual at antiplatelet therapy several years status post his stenting, who presents with a 1 day history of abdominal pain and CT concerning for appendicitis. Patient with leukocytosis to 14. Discussed risks and benefits especially in the setting of his anticoagulation however given risk of perforation we opted to proceed with laparoscopic appendectomy. Risk and benefit discussed questions answered informed consent was obtained. Findings: 1. Extensive induration in the right lower quadrant 2. Superlative nonperforated appendicitis with extensive inflammatory changes and early phlegmon 3. Dense adhesions of the right lower quadrant 4. Neither purulent nor feculent peritonitis appreciated 5. Hemostasis achieved Complications: None - Other Other Information/Narrative: OPERATIVE PROCEDURE: The patient was taken to the operating room, placed supine on the operating table. The patent was already obtained tor informed consent which was documented in the patients permanent medical record The patient was induced for general endotracheal anesthesia. The patient was positioned, off loaded and padded at all pressure points. The patient was placed for a Matias catheter and tucked for the left arm. The patient was prepped and draped in the usual sterile fashion. The patient was called for a time out which was agreed to all in the room. Open Viramontes technique was performed through umbilicus and umbilical trocar was placed. This was achieved with a circumlinear sonja-umbilical incision. This is taken through the subcutaneous fat, the umbilical stalk was dissected off and obvious hernia defect was appreciated. This was done without any injury to the umbilical skin. That [place] defect was enlarged and accommodated Viramontes trocar without any complication. This was a large umbilical hernia that required no further division in order to accommodate the trocar and/or specimen. Insufflation was commenced which the patient tolerated to 15 mmHg well with no complication. Additional trocars were placed suprapubic and left lower quadrant under direct laparoscopic vision. At this time the patient was placed in Trendelenburg position with right side up and we proceeded to isolate the cecum which was densely adhered to the sidewall. The appendix was suppurative however nonperforated and densely adhered to the right lower quadrant. There was no local feculent or purulent peritonitis. The appendix was continued to be mobilized and thereafter we achieved mobilization medially taking care to note the location of the ureter which was protected and identified throughout the entirety at this case especially given the extent of the patients inflammatory changes. Ultimately the cecum was isolated free, and the appendix was thereafter completely mobilized off the abdominal and pelvic sidewall. At this time there were dense adhesions noted of the appendix to the ascending colon and cecum and this required careful dissection as well, both blunt and also using the suction neighborhood aide and cautery along with LigaSure. At this time a [place] was used to dissect the cecal-appendiceal junction and thereafter using a ENDOGIA linear cutting stapler, the appendix was divided at the base to include portion at the cecum. The ileocecal valve was identified and protected throughout with no involvement. At this time, we continued to mobilize the appendix off the ascending colon and caecum making sure there was no inadvertent injury to the ascending colon and the cecum which was again densely adhered to the appendix. This was performed with great care using blunt as well as cautery and LigaSure dissection and ultimately isolated and dissected free the appendix which was placed into an Endo Catch bag for control of any further spillage. The appendiceal staple line and mesoappendix ligation and ligature were evaluated and hemostatic. Please note that we divided the mesoappendix with the LigaSure in the setting of the dual antiplatelet therapy and double burned and checked this suture line multiply which was hemostatic through the entirety of this case and upon desufflation. Surgicel was left in this area as well as well for any occult bleeding however the entire area was hemostatic at the time of closing. At this time, we extensively irrigated the abdomen with greater than 2 liters of sterile saline and aspirated clear. At this time all trochars, secondary, were removed under direct laparoscopic visualization with no consequent bleeding. We removed the Viramontes trocar, passed the specimen off for permanent pathology. We closed the umbilical defect with several [id number] of 0 Vicryl, and performed umbilicoplasty simultaneous. A mixture of quarter percent Marcaine and 1% lidocaine were instilled within the wounds for a total of 10 cc. All skin and subcutaneous tissue was reapproximated with skin reyes. Wounds were dressed with Telfa and Tegaderm. I was present for the entirety of this operative intervention patient tolerated procedure well which is no complication. All counts were sponges needles and instruments were correct at the conclusion of this operative case.
[2019-10-26] MEDS ORDERED: LACTATED RINGERS 1,000 ML IV ONE (18:45)
[2019-10-26] MEDS ORDERED: methocarbamoL 500 MG TABLET PO SCH (19:00)
[2019-10-26] MEDS ORDERED: METOCLOPRAMIDE 10 MG/2 ML VIAL IVP SCH (19:00)
--- NOTE | 2019-10-26 19:26 | ANESTHESIA POST OP EVALUATION ---
Anesthesia Post Eval - Post Anesthesia Eval Vitals: Last Vital Signs Temp 36.4 C L 10/26/19 19:20 Pulse 57 L 10/26/19 19:20 Resp 11 L 10/26/19 19:20 BP 134/72 H 10/26/19 19:20 Pulse Ox 100 10/26/19 19:20 CV Function Including HR & BP: positive: Stable Pain Control: positive: Satisfactory Mental Status: positive: Patient Participates Respiratory Status: Airway Patent Hydration Status: Satisfactory
[2019-10-26] MEDS: D5NS W/20 MEQ KCL 1,000 ML IV SCH (20:49)
[2019-10-26] MEDS: PIPERACILLIN/TAZOBACTAM 3.375 GM in SODIUM CHLORIDE 0.9% MINIBAG 100 ML IV SCH (21:48)
[2019-10-26] MEDS: DOCUSATE SODIUM 100 MG CAPSULE PO SCH (21:48)
[2019-10-26] MEDS: polyethylene glycoL 3350 17 GM PACKET PO SCH (21:49)
[2019-10-26] MEDS: HEPARIN 5,000 UNIT/ML VIAL SUBQ SCH (21:51)
[2019-10-27] MEDS: SODIUM CHLORIDE FLUSH 0.9% 10 ML SYRINGE IVP SCH ×3 (00:22→15:52)
[2019-10-27] MEDS: METOCLOPRAMIDE 10 MG/2 ML VIAL IVP SCH ×3 (04:39→15:52)
[2019-10-27] MEDS: PIPERACILLIN/TAZOBACTAM 3.375 GM in SODIUM CHLORIDE 0.9% MINIBAG 100 ML IV SCH ×2 (04:40→13:42)
[2019-10-27] MEDS: methocarbamoL 500 MG TABLET PO SCH ×3 (04:40→15:50)
[2019-10-27] MEDS: D5NS W/20 MEQ KCL 1,000 ML IV SCH ×2 (04:41→12:59)
[2019-10-27 05:09] LABS: BASOPHILS % (AUTO) 0.1 %; HGB - HEMOGLOBIN 11.3 g/dL (14.0-18.0); LYMPHOCYTES # (AUTO) 0.6 10^3/uL (1.5-3.5); MEAN CORPUSCULAR HEMOGLOBIN 30.9 pg (27.0-31.0); MEAN CORPUSCULAR HGB CONC 31.6 g/dL (32.0-36.0); MEAN CORPUSCULAR VOLUME 97.8 fL (80.0-94.0); MONOCYTES # (AUTO) 0.3 10^3/uL (0.0-1.0); MONOCYTES % (AUTO) 2.5 %; NEUTROPHILS # (AUTO) 10.4 10^3/uL (1.5-6.6); PLT - PLATELET COUNT 232 10^3/uL (130-450); RED BLOOD COUNT 3.66 10^6/uL (4.70-6.10); RED CELL DISTRIBUTION WIDTH 13.5 % (12.0-15.0); WHITE BLOOD COUNT 11.3 x10^3/uL (4.8-10.8)
[2019-10-27 05:22] LABS: ALBUMIN 3.4 g/dL (3.2-5.5); ALBUMIN/GLOBULIN RATIO 1.4 (1.0-2.2); BILIRUBIN,TOTAL 0.9 mg/dL (0.2-1.0); CALCIUM 8.2 mg/dL (8.5-10.3); CREATININE 0.9 mg/dL (0.6-1.2); TOTAL PROTEIN 5.9 g/dL (6.7-8.2)
[2019-10-27] MEDS: HEPARIN 5,000 UNIT/ML VIAL SUBQ SCH ×2 (06:40→13:43)
[2019-10-27] MEDS ORDERED: TAMSULOSIN 0.4 MG CAPSULE PO SCH (09:00)
[2019-10-27] MEDS: DOCUSATE SODIUM 100 MG CAPSULE PO SCH (10:00)
[2019-10-27] MEDS: polyethylene glycoL 3350 17 GM PACKET PO SCH (10:00)
[2019-10-27 15:50] VITALS: BP 119/57
--- NOTE | 2019-10-27 16:41 | Discharge Plan ---
Discharge Plan Problem Reviewed?: Yes Disposition: 01 Home, Self Care Condition: Good Prescriptions: traMADol [Ultram] 50 mg PO Q4-6H #28 tablet Diet: Soft Activity Restrictions: No heavy lift/push/pull Shower Restrictions: No (may shower tomorrow, remove dressing) Driving Restrictions: Yes (no driving whilst taking narcotics) Weight Bearing: Full Weight Instruction Topics: Appendectomy After, Appendectomy Laparoscopic Dc, Hernia Repair Open Dc, Umbilical Hernia Repair After [facility] Concerns: History of cardiac stent, has been on aspirin and Plavix for several years. He has no symptoms without shortness of breath, chest pain, or other cardiac related symptoms. Would recommend discontinuing Plavix in the postoperative setting and following up with cardiology to determine if indicated to resume. Also needs a follow-up with primary care. Needs to follow-up with surgery for staple removal as well. Plan of Treatment: With regard to the patient's medications, he takes a beta-adalid, another antihypertensive, and aspirin and Plavix. He also takes tamsulosin. With regard to his post discharge medications, he was advised to continue all medications as before except to continue to hold the Plavix and follow-up with cardiology. He is several years status post cardiac stenting, he has no interval symptoms that merit continued dual antiplatelet therapy, and is again more than a year out from his initial stent placement. He is also written for tramadol as an outpatient analgesic. Care Goals: DISCHARGE INSTRUCTIONS TEMPLATE: No heavy lifting, pushing, or pulling. Stairs are allowed, no strenuous/exertional activities. 5-10lbs weight carrying limit (i.e. gallon of milk) If provided, abdominal binder while out of bed and while ambulating. Call or proceed to clinic/ER for fevers, severe pain, nausea, vomiting, inability to pass flatus/stool, bleeding, wound redness/discharge, weakness, excessively loose stool/diarrhea, or for any other reasonably worrisome symptom or concern. Soft diet, no raw vegetables, avoid high fiber foods. Colace 100mg by mouth twice to three times daily while taking narcotic pain medication. If no bowel movement in 24-48hr, may take 17g Miralax in 8oz water twice daily until bowel movement. May shower, no submersive bathing. Follow up in clinic in 2-4 weeks for wound check and staple removal. No driving while taking narcotic pain medications. Follow up with primary care provider and/or medical subspecialist following discharge as well. Assessment: Afebrile, hemodynamically acceptable, appropriate for discharge at this time wit h planned outpatient follow-up. Additional Instructions or Follow Up instructions: DISCHARGE INSTRUCTIONS TEMPLATE: No heavy lifting, pushing, or pulling. Stairs are allowed, no strenuous/exertional activities. 5-10lbs weight carrying limit (i.e. gallon of milk) If provided, abdominal binder while out of bed and while ambulating. Call or proceed to clinic/ER for fevers, severe pain, nausea, vomiting, inability to pass flatus/stool, bleeding, wound redness/discharge, weakness, excessively loose stool/diarrhea, or for any other reasonably worrisome symptom or concern. Soft diet, no raw vegetables, avoid high fiber foods. Colace 100mg by mouth twice to three times daily while taking narcotic pain medication. If no bowel movement in 24-48hr, may take 17g Miralax in 8oz water twice daily until bowel movement. May shower, no submersive bathing. Follow up in clinic in 2-4 weeks for wound check and staple removal. No driving while taking narcotic pain medications. Follow up with primary care provider and/or medical subspecialist following discharge as well. No Smoking: If you smoke, Please STOP! Call for help. Follow-up with: Lianet Molina MD [Primary Care Provider] -
--- NOTE | 2019-10-27 17:09 | DISCHARGE SUMMARY ---
"Discharge Summary Admit Date: 10/26/19 Discharge Date: 10/27/19 Discharging Provider: Bo Code Status: Attempt Resuscitation Condition at Discharge: Good Discharge Disposition: 01 Home, Self Care - DIAGNOSES Admission Diagnoses: 1. Acute appendicitis 2. Abdominal pain 3. History of GA 4. Anticoagulated 5. Umbilical hernia Discharge Diagnoses with Status of Each Condition: 1. Acute appendicitis - RESOLVED 2. Abdominal pain - RESOLVED 3. History of GA - UNCHANGED 4. Anticoagulated - UNCHANGED 5. Umbilical hernia - RESOLVED/REPAIRED - HPI History of Present Illness: 74-year-old male with history of GA status post cardiac stenting several years prior on dual antiplatelet therapy who presents with a 1 to 2-day history of abdominal pain. Work-up revealed a leukocytosis to 14, CT scan revealed acute appendicitis with fat stranding. No evidence of perforation. Secondary to the patient's pain, leukocytosis we opted to proceed with operative intervention. Discussion was had to await resolution of the effects of his dual ANTI-platelet therapy however risk of perforation was prohibitive and the patient was advised of the risks of bleeding. - CONSULTS | PROCEDURES Consultations: ANESTHESIA Procedures: Pre-Op Diagnosis: Appendicitis, abdominal pain, history of GA on dual platelet therapy Procedure Performed: 1. Diagnostic laparoscopy 2. Laparoscopic appendectomy 3. Extensive lysis of adhesions 4. Abdominal washout 5. Open umbilical hernia repair 6. Tap block per anesthesia Post Op Diagnosis: Appendicitis, abdominal pain, history of GA on dual platelet therapy - HOSPITAL COURSE Hospital Course: Patient admitted with acute appendicitis. Patient underwent operative interven tion as listed in the electronic medical record. Tolerated procedure well for which there was no complication. History of dual antiplatelet therapy. Great time and diligence was taken during operative intervention for hemostasis given his concurrent aspirin and Plavix. Postoperatively we held both; patient was advised he could resume aspirin as an outpatient. Postoperatively the patient was managed for postoperative analgesia and resumption of bowel function. Patient had successfully passed trial of void. Tolerated oral intake without any complication. He was maintained on tamsulosin. Denied nausea denied vomiting. Was advanced for diet without any complication. No purulent or feculent peritonitis, superlative appendicitis with no evidence of perforation. Patient was maintained on antibiotics during the hospital stay. Discharge instructions given. Analgesia with tramadol provided at time of discharge. Patient plan for follow-up and will be notified of pathology once returned. - ALLERGIES Allergies/Adverse Reactions: Allergies Allergy/AdvReac Type Severity Reaction Status Date / Time No Known Drug Allergies Allergy Verified 10/26/19 13:19 - MEDICATIONS Home Medications: Ambulatory Orders Medication Instructions Recorded Confirmed Tamsulosin HCl [Flomax] 0.4 mg PO 08/20/17 Docusate Sodium 100Mg Capsule 100 mg PO BID capsule 10/27/19 [Colace 100Mg Capsule] polyethylene glycoL 3350 [Miralax] 17 gm PO BID packet 10/27/19 traMADol [Ultram] 50 mg PO Q4-6H #28 tablet 10/27/19 - PHYSICAL EXAM AT DISCHARGE General Appearance: positive: No acute distress, Alert Eyes Bilateral: positive: Normal inspection, PERRL, EOMI ENT: positive: ENT inspection nml Neck: positive: Nml inspection Respiratory: positive: Chest non-tender, No respiratory distress Cardiovascular: positive: Regular rate & rhythm Abdomen: positive: No distention, Other (Soft, appropriately tender to palpation, dressings replaced clean dry and intact, all reyes in place. No rebound, no guarding.). negative: Guarding, Rebound Back: positive: Nml inspection Extremities: positive: Non-tender, Full ROM Neurologic/Psychiatric: positive: Oriented x3, CN's nml (2-12), Motor nml, Sensation nml - LABS Result Diagrams: 10/27/19 05:00 10/27/19 05:00 - SEPSIS Current Stage of Sepsis: Ruled out - FOLLOW UP Follow Up: Follow-up surgery clinic in 2 weeks. Follow-up with primary care in 1 to 2 weeks."
== END 2019-10-27 18:00 | disposition home or self-care (01) ==
LOC: ED 13:07 → SDS 15:15 → MS3 18:30 → SDS 18:32 → MS3 18:32 → SDS 10-27 18:00
PROVIDERS: ATTEND Surgery
PROC: 0DTJ4ZZ Resection of Appendix, Percutaneous Endoscopic Approach (ICD-10-PCS; principal; 2019-10-26 15:15)
DX: K35.80 Unspecified acute appendicitis (principal); K42.9 Umbilical hernia without obstruction or gangrene; I25.10 Atherosclerotic heart disease of native coronary artery without angina pectoris; N40.0 Benign prostatic hyperplasia without lower urinary tract symptoms; I25.2 Old myocardial infarction; Z79.02 Long term (current) use of antithrombotics/antiplatelets; Z95.5 Presence of coronary angioplasty implant and graft; I10 Essential (primary) hypertension; Z79.82 Long term (current) use of aspirin; Z79.899 Other long term (current) drug therapy; F17.200 Nicotine dependence, unspecified, uncomplicated
CPT/HCPCS: 36415; 44970; 71045; 74177; 80053; 81003; 83690; 85025; 86850; 86900; 86901; 93005; 96361; 96365; 99284; 99285; A9270; G0378; J0131; J2765; J7120; Q9967; 81001; 87086

== ENCOUNTER 2021-07-25 09:05 | Outpatient (CLI) | payer MEDICARE ==
[2021-07-25 09:38] LABS: ALBUMIN 4.2 g/dL (3.2-5.5); ALBUMIN/GLOBULIN RATIO 1.4 (1.0-2.2); ALKALINE PHOSPHATASE 54 IU/L (42-121); ALT ALANINE AMINOTRANSFERASE 25 IU/L (10-60); AST ASPARTATE AMINOTRANSFERASE 20 IU/L (10-42); BILIRUBIN,TOTAL 0.7 mg/dL (0.2-1.0); BUN - BLOOD UREA NITROGEN 20 mg/dL (6-20); CARBON DIOXIDE - CO2 28 mmol/L (21-32); CHLORIDE 103 mmol/L (101-111); CHOL/HDL RATIO 3.1 (<5.0); CHOLESTEROL 141 mg/dL; CREATININE 0.9 mg/dL (0.6-1.2); GFR - MDRD 82 (>89); GLUCOSE 112 mg/dL (70-100); HDL CHOLESTEROL 46 mg/dL; LDL CHOLESTEROL,CALCULATED 87 mg/dL; LDL/HDL RATIO 1.9 (<3.6); MAGNESIUM 2.1 mg/dL (1.7-2.8); POTASSIUM 4.4 mmol/L (3.5-5.0); SODIUM 135 mmol/L (135-145); TOTAL PROTEIN 7.1 g/dL (6.7-8.2); TRIGLYCERIDES 42 mg/dL; VLDL CHOLESTEROL 8 mg/dL
[2021-07-25 09:41] LABS: BASOPHILS # (AUTO) 0.1 10^3/uL (0.0-0.1); BASOPHILS % (AUTO) 0.6 %; EOSINOPHILS # (AUTO) 0.1 10^3/uL (0.0-0.7); EOSINOPHILS % (AUTO) 1.5 %; HCT - HEMATOCRIT 41.5 % (42.0-52.0); HGB - HEMOGLOBIN 13.4 g/dL (14.0-18.0); LYMPHOCYTES # (AUTO) 2.2 10^3/uL (1.5-3.5); LYMPHOCYTES % (AUTO) 27.2 %; MEAN CORPUSCULAR HEMOGLOBIN 31.6 pg (27.0-31.0); MEAN CORPUSCULAR HGB CONC 32.3 g/dL (32.0-36.0); MEAN CORPUSCULAR VOLUME 97.9 fL (80.0-94.0); MEAN PLATELET VOLUME 9.3 fL (7.4-11.4); MONOCYTES # (AUTO) 0.7 10^3/uL (0.0-1.0); NEUTROPHILS # (AUTO) 4.9 10^3/uL (1.5-6.6); NEUTROPHILS % (AUTO) 61.4 %; PLT - PLATELET COUNT 292 10^3/uL (130-450); RED BLOOD COUNT 4.24 10^6/uL (4.70-6.10); RED CELL DISTRIBUTION WIDTH 12.7 % (12.0-15.0); WHITE BLOOD COUNT 7.9 x10^3/uL (4.8-10.8)
[2021-07-25 09:42] LABS: ESTIMATED AVERAGE GLUCOSE 131 mg/dL (70-100); HEMOGLOBIN A1c% 6.2 % (4.27-6.07)
== END 2021-07-25 09:06 | disposition home or self-care (01) ==
LOC: LAB 09:05
PROVIDERS: ATTEND Internal Medicine
DX: Z00.00 Encounter for general adult medical examination without abnormal findings (principal); D64.9 Anemia, unspecified; I25.10 Atherosclerotic heart disease of native coronary artery without angina pectoris; R25.2 Cramp and spasm; R97.20 Elevated prostate specific antigen [PSA]; E78.5 Hyperlipidemia, unspecified; R73.01 Impaired fasting glucose; C44.90 Unspecified malignant neoplasm of skin, unspecified; B02.9 Zoster without complications
CPT/HCPCS: 36415; 80053; 80061; 83036; 83721; 83735; 84153; 84443; 85025

== ENCOUNTER 2022-11-22 12:34 | Outpatient (CLI) | payer MEDICARE ==
--- NOTE | 2022-11-22 18:50 | Ultrasound Report ---
PROCEDURE: Testicle INDICATIONS: SCROTAL MASS TECHNIQUE: Real-time scanning was performed of the scrotum and testicles, with image documentation. Color and p ulse Doppler interrogation was performed of both testicles. COMPARISON: None. FINDINGS: Right: Testicle is normal in size at 4.9 x 4 x 2.8 cm, and homogenous in echotexture. Rete testes n oted, associated testicular cyst measuring 1.8 cm. No mural nodule or suspicious blood flow. Epididym al cyst measuring 0.1 cm and 1.6 cm. Epididymis is normal in overall size and morphology. Trace hydr ocele. No varicoceles. Overlying scrotal skin is normal in thickness. Left: Testicle is normal in size at 4.4 x 2.8 x 2.6 cm, and homogeneous in echotexture. Rete testes noted. Epididymis is normal in overall size and morphology. Epididymal cyst measuring 1.1 cm. Trace hydrocele. No varicoceles. Overlying scrotal skin is normal in thickness. Doppler: Color and pulse Doppler demonstrate normal and symmetric arterial flow in both testicles. IMPRESSION: 1. Benign right epididymal cysts measuring 4.1 cm and 1.6 cm. This likely corresponds to the right pa lpable abnormality. Additional small left epididymal cyst measuring 1.1 cm. 2. Benign right testicular cyst adjacent to the rete testes measuring 1.8 cm. 3. No solid testicular mass. No testicular torsion. 4. Trace bilateral hydroceles. Reviewed by: Mando Morton MD on 11/22/2022 6:49 PM PDT Approved by: Mando Morton MD on 11/22/2022 6:49 PM PDT Station ID: [id number]
== END 2022-11-22 12:35 | disposition home or self-care (01) ==
LOC: DI 12:34
PROVIDERS: ATTEND Urology
DX: N50.3 Cyst of epididymis (principal); N44.2 Benign cyst of testis; N43.3 Hydrocele, unspecified